=== PATIENT | male | born 1950 | race Caucasian/White ===

== ENCOUNTER 2018-02-11 16:35 | Emergency (ER) | payer OTHER ==
[2018-02-11] MEDS ORDERED: Tetan/Diph/Pertus SYR(Tdap)* 0.5 ML SYR(BOOSTRIX) use SYR IM ONE (17:03)
[2018-02-11 18:10] VITALS: BP 139/83
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
== END 2018-02-11 18:09 | disposition home or self-care (01) ==
LOC: ED 16:35
DX: S51.812A Laceration without foreign body of left forearm, initial encounter (principal); W22.8XXA Striking against or struck by other objects, initial encounter; Y92.9 Unspecified place or not applicable; I10 Essential (primary) hypertension; Z87.891 Personal history of nicotine dependence
CPT/HCPCS: 12002; 90471; 90715; 99282

== ENCOUNTER 2018-03-27 09:47 | Emergency (ER) | payer OTHER ==
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
[2018-03-27] MEDS ORDERED: Lidocaine 2% PF * 5 ML VIAL INJ ONE (10:47)
[2018-03-27] MEDS ORDERED: Lidocaine 2% PF * 5 ML VIAL ONE (10:51)
[2018-03-27 11:27] VITALS: BP 162/116
== END 2018-03-27 11:29 | disposition home or self-care (01) ==
LOC: ED 09:47
DX: S01.81XA Laceration without foreign body of other part of head, initial encounter (principal); Y04.2XXA Assault by strike against or bumped into by another person, initial encounter; Y93.9 Activity, unspecified; Y92.008 Other place in unspecified non-institutional (private) residence as the place of occurrence of the external cause; I10 Essential (primary) hypertension; Z79.82 Long term (current) use of aspirin; Z87.891 Personal history of nicotine dependence
CPT/HCPCS: 12011; 99282

== ENCOUNTER → 2018-03-31 17:46 | Emergency (ER) | payer OTHER ==
[2018-03-31 18:06] VITALS: BP 122/84
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
== END | disposition home or self-care (01) ==
LOC: ED 17:46
DX: S01.01XD Laceration without foreign body of scalp, subsequent encounter (principal); Z48.02 Encounter for removal of sutures; Z87.891 Personal history of nicotine dependence

== ENCOUNTER 2019-07-09 14:10 | Emergency (ER) | payer OTHER ==
[2019-07-09 16:13] LABS: ABS Eosinophils 0.1 10^3/ul (0-0.6); ABS Lymphocytes 0.3 10^3/ul (1.0-4.8); ABS Monocytes 0.4 10^3/ul (0-0.8); ABS Neutrophils 6.1 10^3/ul (1.5-7.7); Hematocrit 43 % (42-52); Mean Corpuscular HGB Conc 35 g/dL (31-36); Mean Corpuscular Hemoglobin 34 pg (27-31); Mean Corpuscular Volume 95 fL (80-94); Mean Platelet Volume 7.9 fL (7.4-10.4); Nucleated Red Blood Cells % 0.2; Platelet Count 164 10^3/uL (150-450); Red Blood Count 4.49 10^6 /uL (4.18-5.48); Red Cell Distribution Width 14 % (10-15); White Blood Count 6.9 10^3/uL (3.5-10.8)
[2019-07-09] MEDS ORDERED: NS 0.9% 1000 ML** 1,000 ML IV ONE ×2 (16:18→17:18)
--- NOTE | 2019-07-09 16:24 | ED ---
Throat Pain/Nasal Congestion - HPI Summary HPI Summary: Patient is a 68 y/o M presenting to the ED for a chief complaint of fatigue that began after shoveling snow on 07/08/19. Patient is present with his domestic partner. He also notes having nausea and vomiting that began on and continued into 07/09/19. He denies abdominal pain, chest pain, or cough. Patient admits having a dinner of chicken and drinking whiskey and rum before going to sleep on 07/08/19. PMHx is significant for HTN, but he denies cardiac problems. FMHx of cardiac disease is denied. - History of Current Complaint Chief Complaint: EDNauseaVomitDiarrh Time Seen by Provider: 07/09/19 15:25 Hx Obtained From: Patient Onset/Duration: Sudden Onset, Still Present Severity: Moderate Associated Signs And Symptoms: Positive: Negative Cough: None - Allergies/Home Medications Allergies/Adverse Reactions: Allergies Allergy/AdvReac Type Severity Reaction Status Date / Time No Known Allergies Allergy Verified 07/09/19 14:52 Home Medications: Home Medications Sildenafil (NF) 100 mg PO PRN 07/09/19 [History] PMH/Surg Hx/FS Hx/Imm Hx Previously Healthy: Yes Endocrine/Hematology History: Denies: Hx Bone Marrow Disease, Hx Diabetes, Hx Sickle Cell Disease, Hx Thyroid Disease, Hx Anemia Cardiovascular History: Reports: Hx Hypertension - on medicaton for Denies: Hx Angina, Hx Cardiomegaly, Hx Congestive Heart Failure, Hx Coronary Artery Disease, Hx Pacemaker/ICD, Hx Peripheral Vascular Disease, Hx Rheumatic Fever, Hx Valvular Heart Disease, Other Cardiovascular Problems/Disorders Respiratory History: Reports: Hx Asthma - fall Denies: Hx Pulmonary Edema, Hx Pulmonary Embolism, Hx Sleep Apnea, Other Respiratory Problems/Disorders GI History: Denies: Hx Cirrhosis, Hx Crohn's Disease, Hx Gastroesophageal Reflux Disease , Hx Hiatal Hernia, Hx Irritable Bowel, Hx Jaundice, Hx Ulcer, Other GI Disorders History: Denies: Hx Kidney Infection, Hx Kidney Stones, Other Problems/Disorders Musculoskeletal History: Reports: Hx Arthritis - HAND AND LUMBAR SPINE Denies: Hx Bursitis, Hx Tendonitis, Other Musculoskeletal History Sensory History: Reports: Hx Contacts or Glasses, Hx Glaucoma Denies: Hx Cataracts, Hx Legally Blind, Hx Deafness, Hx Hearing Aid Opthamlomology History: Reports: Hx Contacts or Glasses, Hx Glaucoma Denies: Hx Cataracts, Hx Legally Blind EENT History: Denies: Hx Deafness Neurological History: Denies: Hx Headaches, Hx Migraine, Hx Seizures, Other Neuro Impairments/ Disorders Psychiatric History: Denies: Hx Anxiety, Hx Depression, Hx Schizophrenia - Cancer History Hx Chemotherapy: No - Surgical History Surgical History: Yes Surgery Procedure, Year, and Place: LEFT RING FINGER- LUC. LEFT FEMUR- - L. LEFT [id number]-[id number]- ACL REPAIR. Left first finger Jara-Young Hx Anesthesia Reactions: No - Immunization History Date of Tetanus Vaccine: Unk Date of Influenza Vaccine: Fall 2013 Immunizations Up to Date: Yes Infectious Disease History: No Infectious Disease History: Denies: Hx Hepatitis, Traveled Outside the [place] in Last 30 Days - Family History Known Family History: Negative: Cardiac Disease, Diabetes, Renal Disease, Respiratory Disease - Social History Occupation: Employed Full-time Lives: With Family Alcohol Use: Daily Alcohol Amount: 4 to 6 oz daily Hx Substance Use: No Substance Use Type: Reports: None Hx Tobacco Use: Yes Smoking Status (MU): Former Smoker Type: Cigarettes Review of Systems Positive: Fatigue Negative: Chest Pain Negative: Cough Positive: Vomiting, Nausea. Negative: Abdominal Pain All Other Systems Reviewed And Are Negative: Yes Physical Exam - Summary Physical Exam Summary: Constitutional: Well-developed, Well-nourished, Alert. (-) Distressed Skin: Warm, Dry HENT: Normocephalic; Atraumatic Eyes: Conjunctiva normal Neck: Musculoskeletal ROM normal neck. (-) JVD, (-) Stridor, (-) Nuchal rigidity Cardio: Rhythm regular, rate normal, Heart sounds normal; Intact distal pulses; Radial pulses are 2+ and symmetric. (-) Murmur Pulmonary/Chest wall: Effort normal. (-) Respiratory distress, (-) Wheezes, (-) Rales Abd: Soft, (-) tenderness, (-) Distension, (-) Guarding, (-) Rebound Musculoskeletal: (-) Edema Lymph: (-) Cervical adenopathy Neuro: Alert, Oriented x3 Psych: Mood and affect Normal Triage Information Reviewed: Yes Vital Signs On Initial Exam: Initial Vitals Temp Pulse Resp BP Pulse Ox 99.3 F 82 16 136/74 99 07/09/19 14:48 07/09/19 14:48 07/09/19 14:48 07/09/19 14:48 07/09/19 14:48 Vital Signs Reviewed: Yes Procedures - Sedation Patient Received Moderate/Deep Sedation with Procedure: No Diagnostics - Vital Signs Vital Signs Temp Pulse Resp BP Pulse Ox 07/09/19 15:21 98 139/102 99 07/09/19 14:48 99.3 F 82 16 136/74 99 - Laboratory Lab Results: Lab Results 07/09/19 Range/Units 16:00 WBC 6.9 (3.5-10.8) 10^3/uL RBC 4.49 (4.18-5.48) 10^6 /uL Hgb 15.0 (14.0-18.0) g/dL Hct 43 (42-52) % MCV 95 H (80-94) fL MCH 34 H (27-31) pg MCHC 35 (31-36) g/dL RDW 14 (10-15) % Plt Count 164 (150-450) 10^3/uL MPV 7.9 (7.4-10.4) fL Neut % (Auto) 88.5 % Lymph % (Auto) 5.0 % Phelps % (Auto) 5.3 % Eos % (Auto) 1.0 % Baso % (Auto) 0.2 % Absolute Neuts (auto) 6.1 (1.5-7.7) 10^3/ul Absolute Lymphs (auto) 0.3 L (1.0-4.8) 10^3/ul Absolute Monos (auto) 0.4 (0-0.8) 10^3/ul Absolute Eos (auto) 0.1 (0-0.6) 10^3/ul Absolute Basos (auto) 0.0 (0-0.2) 10^3/ul Absolute Nucleated RBC 0.0 10^3/ul Nucleated RBC % 0.2 Result Diagrams: 07/09/19 16:00 07/09/19 16:00 Lab Statement: Any lab studies that have been ordered have been reviewed, and results considered in the medical decision making process. - EKG 15:38 Cardiac Rate: NL - 91 BPM EKG Rhythm: Sinus Rhythm ST Segment: Normal Ectopy: None EKG Comparison: No Significant Change - No change from 04/14/15. Summary of EKG Findings: An EKG at 15:38 reveals normal sinus rhythm 91 BPM, nml axis, nml intervals. No STEMI. No acute changes. Inverted P wave in lead III. No change from 04/14/15. Reviewed and interpreted by Dr. Lundberg. 18:03 Cardiac Rate: Other Rate - 96 BPM EKG Rhythm: Atrial Fibrillation ST Segment: Normal Ectopy: None Summary of EKG Findings: An EKG at 18:03 reveals atrial fibrillation with 96 BPM , nml axis, nml intervals. No STEMI. No acute changes. Reviewed and interpreted by Dr. Lundberg. Re-Evaluation - Re-Evaluation First Eval Re-Evaluation Time: 17:00 Change: Improved - feeling better, asking to eat. D/w patient labs notable for elevated Cr and likely dehydration. Denies abd pain at this time. Plan for IVF, po trial likely TBDC Comment: At 17:00, patient is improved. Second Re-Evaluation Time: 17:52 Change: Unchanged Comment: At 17:52, patient had atrial flutter/fib in the 140s. No hx. No CP. EKG w afib, spontaneously back in sinus. EENT Course/Dx - Course Course Of Treatment: 68 y/o male who p/w fatigue, n/v. - PE well appearing, NAD. Recent EtOH use could be contributing to n/v (now resolved), Denies CP. EKG sinus, trop neg. labs w elevated Cr, plan for IVF. Patient went into afib briefly, back in sinus. D/w cardiology who recommends eliquis 5 BID, metoprolol 25 XR. F/u PCP. Educated patient on blood thinners and risks. Given first dose here. Given metoprolol as well. - Diagnoses Provider Diagnoses: Fatigue, Atrial fibrillation - Provider Notifications Discussed Care Of Patient With: Tapan Coe - At 18:40, Dr. Coe recommends magnesium and potassium replacement and Eliquis 5 BID. Time Discussed With Above Provider: 18:40 Discharge ED - Sign-Out/Discharge Documenting (check all that apply): Patient Departure - Discharge - Discharge Plan Condition: Stable Disposition: HOME Prescriptions: Apixaban* [Eliquis*] 5 mg PO BID 30 Days #60 tab Metoprolol Succinate XL TAB* [Toprol XL TAB*] 25 mg PO DAILY 30 Days #30 tab.xl Patient Education Materials: A-fib (Atrial Fibrillation) (ED) Referrals: Fabián Valverde MD [Primary Care Provider] - Tapan Coe MD [Medical Doctor] - Additional Instructions: You were seen in the emergency department for fatigue and dehydration. If any studies were not completed at the time of discharge you will be called with the relevant results. Please follow up with your primary care doctor in next 2-3 days and return to emergency department for worsening fatigue, chest pain, passing out or concerning symptoms. It was a pleasure taking care of you today. - Billing Disposition and Condition Condition: STABLE Disposition: Home - Attestation Statements Document Initiated by [email or web address] césar: Yes Documenting Scribe: Jaquelin Landa Provider For Whom Alyssa is Documenting (Include Credential): Juliet Lundberg MD Scribe Attestation: IJaquelin, scribed for Juliet Lundberg MD on 07/11/19 at 1546. Scribe Documentation Reviewed: Yes Provider Attestation: The documentation as recorded by the [email or web address] angela accurately reflects the service I personally performed and the decisions made by , Juliet Lundberg MD Status of Scribe Document: Viewed
[2019-07-09 16:29] LABS: Troponin I 0.02 ng/mL (<0.03)
[2019-07-09 16:30] LABS: ALT 16 U/L (7-52); AST 20 U/L (13-39); Albumin 3.9 g/dL (3.2-5.2); Albumin/Globulin Ratio 1.7 (1-3); Alkaline Phosphatase 52 U/L (34-104); Anion Gap 6 mmol/L (2-11); BUN/Creatinine Ratio 21.8 (8-20); Blood Urea Nitrogen 27 mg/dL (6-24); CO2 Carbon Dioxide 29 mmol/L (22-32); Calcium 9.2 mg/dL (8.6-10.3); Chloride 100 mmol/L (101-111); EGFR African American 70.6 (>60); EGFR Non-African American 58.3 (>60); Globulin 2.3 g/dL (2-4); Glucose 92 mg/dL (70-100); Potassium 3.9 mmol/L (3.5-5.0); Sodium 135 mmol/L (135-145); Total Protein 6.2 g/dL (6.4-8.9)
[2019-07-09 18:13] LABS: Magnesium 1.9 mg/dL (1.9-2.7)
[2019-07-09] MEDS ORDERED: Metoprolol Succinate XL TAB* 25 MG PO ONE (18:29)
[2019-07-09] MEDS ORDERED: Magnesium Oxide TAB* 400 MG PO ONE (18:40)
[2019-07-09] MEDS ORDERED: Apixaban* 5 MG TAB PO ONE (18:40)
[2019-07-09] MEDS ORDERED: Potassium Chlor TAB* 20 MEQ TAB.ER PO ONE (18:40)
[2019-07-09 19:10] LABS: TSH (Thyroid Stimulating Horm) 0.34 mcIU/mL (0.34-5.60)
[2019-07-09 19:41] VITALS: BP 140/108
== END 2019-07-09 20:27 | disposition home or self-care (01) ==
LOC: ED 14:10
DX: R53.83 Other fatigue (principal); I48.91 Unspecified atrial fibrillation; I10 Essential (primary) hypertension; Z87.891 Personal history of nicotine dependence; Z79.899 Other long term (current) drug therapy
CPT/HCPCS: 36415; 80053; 83690; 83735; 84443; 84484; 85025; 93005; 96360; 96361; 99283; A9270-GY